=== PATIENT | female | born 1995 | race Two or more races ===

== ENCOUNTER 2019-02-22 19:13 | Emergency (ER) | payer OTHER ==
[~2019-02-22] VITALS: Ht 172.7 cm; Wt 60.3 kg
[2019-02-22 19:15] VITALS: BP 142/89
== END 2019-02-22 19:43 | disposition home or self-care (01) ==
LOC: ER 19:13
DX: J06.9 Acute upper respiratory infection, unspecified (principal); S10.96XA Insect bite of unspecified part of neck, initial encounter; S70.361A Insect bite (nonvenomous), right thigh, initial encounter; S60.861A Insect bite (nonvenomous) of right wrist, initial encounter; W57.XXXA Bitten or stung by nonvenomous insect and other nonvenomous arthropods, initial encounter; Y93.89 Activity, other specified; Y92.89 Other specified places as the place of occurrence of the external cause; Y99.8 Other external cause status
CPT/HCPCS: 86403-TC; 87070-TC